=== PATIENT | male | born 1970 | race Two or more races ===

== ENCOUNTER 2019-12-15 10:32 | Emergency (ER) | payer MEDICAID ==
[2019-12-15] MEDS ORDERED: Sodium Chloride 0.9% 10 ML Syringe FLUSH PRN (10:46)
[2019-12-15] MEDS ORDERED: Aspirin 81 MG Tab.Chew PO ONE (10:51)
--- NOTE | 2019-12-15 10:52 | EDM.PDOC ---
ED HPI GENERAL MEDICAL PROBLEM - General Chief Complaint: Chest Pain Stated Complaint: CHEST PAIN Time Seen by Provider: 12/15/19 10:35 Source of Information: Reports: Patient History Limitations: Reports: No Limitations - History of Present Illness INITIAL COMMENTS - FREE TEXT/NARRATIVE: Patient comes into the emergency department with complaints of chest pain. Patient developed chest pain approximately 48 hours prior to arrival. He states it is midsternal to the left side of the chest radiating up to the left shoulder. describes it as heavy and sharp sensation. He states it does get worse with taking a deep breath or moving his left arm. Patient does state that he has been having issues with medication interactions regarding his Chantix. He has been on the single dose and tries to increase to the second dose however he has concerns with insomnia and weird vivid dreams. He also feels the chest discomfort came on after he took his morning dose 2 days ago when he increased the medication. The pain has not gone away but he feels it has gotten worse after he takes the pills in the am and hs. He has had a full cardiac work-up needed about 1 month ago with a stress test which resulted in negative findings. Patient was told that he had high cholesterol and was started on medications at that time frame as well. Patient denies any shortness of breath, nausea, vomiting, dizziness, lightheadedness, or peripheral edema. Onset: Sudden Quality: Reports: Sharp, Other Severity: Moderate Improves with: Reports: Other Worsens with: Reports: Movement Associated Symptoms: Reports: No Other Symptoms - Related Data Allergies Allergy/AdvReac Type Severity Reaction Status Date / Time No Known Allergies Allergy Verified 12/15/19 11:14 ED ROS GENERAL - Review of Systems Review Of Systems: See Below Constitutional: Reports: No Symptoms HEENT: Reports: No Symptoms Respiratory: Reports: No Symptoms Endocrine: Reports: No Symptoms GI/Abdominal: Reports: No Symptoms : Reports: No Symptoms Musculoskeletal: Reports: No Symptoms Skin: Reports: No Symptoms Neurological: Reports: No Symptoms Psychiatric: Reports: No Symptoms Hematologic/Lymphatic: Reports: No Symptoms Immunologic: Reports: No Symptoms ED EXAM, GENERAL - Physical Exam Exam: See Below Exam Limited By: No Limitations General Appearance: Alert, WD/WN, No Apparent Distress Eye Exam: Bilateral Eye: EOMI, PERRL Ears: Normal External Exam, Normal Canal, Hearing Grossly Normal Nose: Normal Inspection, Normal Mucosa Throat/Mouth: Normal Inspection, Normal Lips, Normal Oropharynx Head: Atraumatic, Normocephalic Neck: Normal Inspection, Supple, Non-Tender Respiratory/Chest: No Respiratory Distress, Lungs Clear, Normal Breath Sounds, No Accessory Muscle Use, Chest Non-Tender Cardiovascular: Normal Peripheral Pulses, Regular Rate, Rhythm, No Edema GI/Abdominal: Normal Bowel Sounds, Soft, Non-Tender, No Distention Back Exam: Normal Inspection, Full Range of Motion Extremities: Normal Inspection, Normal Range of Motion, Non-Tender, Normal Capillary Refill Neurological: Alert, Oriented, Normal Cognition, Normal Gait Psychiatric: Normal Affect, Normal Mood Skin Exam: Warm, Dry, Intact, Normal Color, No Rash Course - Orders/Labs/Meds Orders: Active Orders 24 hr Category Date Time Status EKG Documentation Completion [RC] STAT Care 12/15/19 10:46 Ordered Sodium Chloride 0.9% [Saline Flush] Med 12/15/19 10:46 Ordered 10 ml FLUSH ASDIRECTED PRN Peripheral IV Insertion Adult [OM.PC] Stat Oth 12/15/19 10:46 Ordered Medication Orders Sodium Chloride (Saline Flush) 10 ml FLUSH ASDIRECTED PRN PRN Reason: Keep Vein Open Labs: Laboratory Tests 12/15/19 12/15/19 Range/Units 10:54 10:54 WBC 11.7 H (4.0-10.0) x10^3/uL RBC 4.75 (4.5-6.0) x10^6/uL Hgb 15.6 (14.0-18.0) g/dL Hct 45.4 (40.0-52.0) % MCV 95.6 H (78.0-93.0) fL MCH 32.8 H (26.0-32.0) pg MCHC 34.4 (32.0-36.0) g/dL RDW Coeff of Jitendra 12.6 (10.0-15.0) % Plt Count 218 (130-400) x10^3/uL Neut % (Auto) 61.4 (50.0-80.0) % Lymph % (Auto) 25.9 (25.0-50.0) % [place] % (Auto) 7.4 (2.0-11.0) % Eos % (Auto) 5.0 H (0.0-4.0) % Baso % (Auto) 0.3 (0.2-1.2) % Sodium 142 (136-145) mmol/L Potassium 4.1 (3.5-5.1) mmol/L Chloride 107 (98-107) mmol/L Carbon Dioxide 24 (21-32) mmol/L Anion Gap 15.1 (10-20) mmol/L BUN 8 (7-18) mg/dL Creatinine 0.8 (0.70-1.30) mg/dL Est Cr Clr Drug Dosing TNP Estimated GFR (MDRD) > 60 Glucose 90 (74-106) mg/dL Calcium 9.0 (8.5-10.1) mg/dL Corrected Calcium 9.16 (8.5-10.1) mg/dL Total Bilirubin 0.3 (0.2-1.0) mg/dL AST 20 (15-37) U/L ALT 31 (16-63) U/L Alkaline Phosphatase 127 H (46-116) U/L Troponin I < 0.017 (<=0.056) ng/mL Total Protein 7.3 (6.4-8.2) g/dL Albumin 3.8 (3.4-5.0) g/dL Globulin 3.5 Albumin/Globulin Ratio 1.09 Meds: Medications Generic Name Dose Route Start Last Admin Trade Name Freq PRN Reason Stop Dose Admin Sodium Chloride 10 ml 12/15/19 10:46 Saline Flush FLUSH ASDIRECTED PRN Keep Vein Open Discontinued Medications Generic Name Dose Route Start Last Admin Trade Name Freq PRN Reason Stop Dose Admin Aspirin 324 mg 12/15/19 10:51 12/15/19 11:14 Aspirin PO 12/15/19 10:52 324 mg ONETIME ONE Administration Departure - Departure Time of Disposition: 11:40 Disposition: Home, Self-Care 01 Condition: Good Clinical Impression: Medication side effect, Medication intolerance, Nonspecific chest pain - Discharge Information *PRESCRIPTION DRUG MONITORING PROGRAM REVIEWED*: Not Applicable *COPY OF PRESCRIPTION DRUG MONITORING REPORT IN PATIENT BELEM: Not Applicable Instructions: Drug Allergy, [id number], Nonspecific Chest Pain, [id number] Referrals: Hellen Mack MD [Primary Care Provider] - Forms: ED Department Discharge Additional Instructions: 1. rest 2. increase your water intake 3. Continue all at home medications 4. Follow up with PCP if symptoms continue, return, or progress 5. Call with any questions or concerns 6. Stop Chantix immediately follow-up with your primary care provider for other recommendations to help with smoking sensation 7. Continue with the [place] 1-800 quit line for smoking sensation assistance as you have been doing 8. Activity and diet as tolerated. Sepsis Event Note - Focused Exam Date Exam was Performed: 12/15/19 Time Exam was Performed: 11:43 - Problem List Review Problem List Initiated/Reviewed/Updated: Yes - My Orders Last 24 Hours: My Active Orders 12/15/19 10:46 EKG Documentation Completion [RC] STAT Sodium Chloride 0.9% [Saline Flush] 10 ml FLUSH ASDIRECTED PRN Peripheral IV Insertion Adult [OM.PC] Stat - Assessment/Plan Last 24 Hours: My Active Orders 12/15/19 10:46 EKG Documentation Completion [RC] STAT Sodium Chloride 0.9% [Saline Flush] 10 ml FLUSH ASDIRECTED PRN Peripheral IV Insertion Adult [OM.PC] Stat Assessment:: 1. chest pain Plan: 1. Labs completed in the ER. Results reviewed with the patient 2. IV initiated in the emergency department 3. Chest x-ray completed in the ER. 4. Patient and nursing staff was updated regarding the plan of care 5. Patient is advised to stop taking Chantix for the discomfort has been getting worse after he takes the medication 6. ASA 324mg given in ER. 7. Education provided the patient regarding activity, diet, rest, over-the- counter medication modalities, and follow-up care was provided 8. Patient and family are agreeable to the above plan of care 9. All questions and concerns were addressed with the patient and family prior to discharge
[2019-12-15 11:27] LABS: ANION GAP 15.1 mmol/L (10-20); CHLORIDE,CL 107 mmol/L (98-107); SODIUM,NA 142 mmol/L (136-145)
--- NOTE | 2019-12-15 11:40 | CR ---
[id number] RAD/RAD Chest PA or AP 1V EXAM: SINGLE VIEW CHEST. INDICATION: CHEST PAIN COMPARISON: NO PREVIOUS SIMILAR EXAM IS AVAILABLE FINDINGS: The lungs are clear The cardiomediastinal contour is mildly prominent IMPRESSION: NO ACUTE PROCESS Fuad Flores MD 12/15/19 1447 Thank you for allowing us to participate in the care of your patient.
== END 2019-12-15 11:54 | disposition home or self-care (01) ==
LOC: VM.ED 10:32
DX: R07.2 Precordial pain (principal); T44.995A Adverse effect of other drug primarily affecting the autonomic nervous system, initial encounter
CPT/HCPCS: 36415; 71045; 80053; 84484; 85025; 93005; 99285; A9270

== ENCOUNTER 2025-05-10 14:53 | Emergency (ER) | payer BC ==
[2025-05-10] MEDS ORDERED: Sodium Chloride 0.9% 10 ML Syringe FLUSH PRN (15:14)
[2025-05-10] MEDS: Ketorolac 15 MG/ML SDV IVPUSH ONE (15:24)
[2025-05-10] MEDS: Ondansetron 4 MG/2 ML SDV IVPUSH ONE (15:24)
[2025-05-10 15:30] LABS: PLATELET COUNT,PLT 268 x10^3/uL (130-400); RED BLOOD CELL COUNT 4.38 x10^6/uL (4.5-6.0); WHITE BLOOD CELL COUNT,WBC 17.5 x10^3/uL (4.0-10.0)
[2025-05-10 15:55] LABS: A/G RATIO 0.89; ALANINE AMINOTRANSFERASE,ALT 28.0 U/L (16-63); ASPARTATE AMNIOTRANSFERASE,AST 29.0 U/L (15-37); BILIRUBIN TOTAL 0.3 mg/dL (0.2-1.0); BLOOD UREA NITROGEN,BUN 15.0 mg/dL (7-18); CARBON DIOXIDE,CO2 26.0 mmol/L (21-32); CHLORIDE,CL 103.0 mmol/L (98-107); CREATININE 0.9 mg/dL (0.70-1.30); EST CRCL DRUG DOSING (CG) 97.61 mL/min; GLUCOSE RANDOM 208.0 mg/dL (70-99); POTASSIUM,K 3.9 mmol/L (3.5-5.1); PROTEIN TOTAL,TP 7.2 g/dL (6.4-8.2); SODIUM,NA 138.0 mmol/L (136-145)
[2025-05-10 15:57] LABS: ESTIMATED GFR 100.0 mL/min (>=60); LACTIC ACID 1.2 mmol/L (0.4-2.0)
[2025-05-10 15:58] LABS: BAND PERCENT MAN 2 % (0-6); EOSINOPHILS ABSOLUTE MAN 0.4 x10^3/uL (0.0-0.5); EOSINOPHILS PERCENT MAN 2 % (0-4); LYMPHOCYTES ABSOLUTE MAN 2.5 x10^3/uL (1.0-4.8); LYMPHOCYTES PERCENT MAN 14 % (25-50); MONOCYTES ABSOLUTE MAN 0.7 x10^3/uL (0.0-0.8); MONOCYTES PERCENT MAN 4 % (2-11); NEUTROPHILS ABSOLUTE MAN 14.0 x10^3/uL (1.8-7.7); PLATELET COUNT ESTIMATE ADEQUATE; SEG NEUTROPHILS PERCENT MAN 78 % (50-80)
[2025-05-10] MEDS: Iopamidol 612 MG/ML 100 ML Bottle IVPUSH ONE (16:20)
== END 2025-05-10 18:17 | disposition short-term general hospital (02) ==
LOC: VM.ED 14:53 → MERGE 14:53 → VM.ED 18:17
DX: K62.89 Other specified diseases of anus and rectum (principal); F17.210 Nicotine dependence, cigarettes, uncomplicated; Z79.4 Long term (current) use of insulin; Z79.899 Other long term (current) drug therapy; Z79.84 Long term (current) use of oral hypoglycemic drugs
CPT/HCPCS: 36415; 74177; 80053; 83605; 83735; 85025; 86140; 87040; 96374; 96375; 99284; J0696; J1885; J2405; Q9967